=== PATIENT | male | born 1940 | race Caucasian/White ===

== ENCOUNTER 2018-04-03 05:32 | Observation (INO) | payer OTHER ==
--- NOTE | 2018-04-02 16:43 | GHP ---
DATE OF ADMISSION: 04/03/2018 ADMISSION DIAGNOSES: Urinary retention, benign prostatic hypertrophy, and hematuria. This 77-year-old gentleman, who has had lower urinary tract symptoms with urinary obstruction, and he has had a bulbar urethral stricture as well as regrowth of prostatic adenoma. His bladder neck is o pen, and he has had gross hematuria that seems to be related to his regrowth of prostate. He did hav e a photovaporization of prostate in 2012, and did well, but he has continued to have the gross hemat uria, and he is admitted for a TURP. PAST MEDICAL HISTORY: Hematuria, BPH with obstruction, diabetes, erectile dysfunction, hypercholeste rolemia. PAST SURGERIES: GreenLight photovaporization of the prostate, appendectomy, skin cancer. MEDICATIONS: Aspirin, hydrochlorothiazide, lisinopril, metformin, simvastatin. ALLERGIES: None. FAMILY HISTORY: Heart disease, colon cancer, diabetes, hypertension. SOCIAL HISTORY: Moderate alcohol consumption. Former smoker. REVIEW OF SYSTEMS: Negative for cardiac, respiratory, GI, and endocrine. PHYSICAL EXAMINATION: VITAL SIGNS: Stable. CHEST: Clear. HEART: Regular rate and rhythm. ABDOM EN: Normal, no organomegaly, rebound, or guarding. LOWER EXTREMITIES: Normal. At the present time, he is admitted for a transurethral resection of the prostate. It should be said in 2012, he did have urodynamics that showed BPH with obstruction. He is admitted for the above pro cedure. /[id number]/MODL
[2018-04-03] MEDS ORDERED: ceFAZolin 2 GM/DEXTROSE 100 ML IV ONE (05:37)
[2018-04-03] MEDS ORDERED: LIDOCAINE 1% 2 ML INJ ID PRN (05:38)
[2018-04-03] MEDS ORDERED: LR 1,000 ML IV ONE (05:38)
--- NOTE | 2018-04-03 06:50 | PDANEPAE ---
ANE History of Present Illness BPH here for TURP ANE Past Medical History - Cardiovascular History Hx Hypertension: Yes Hx Arrhythmias: No Hx Chest Pain: No Hx Coronary Artery / Peripheral Vascular Disease: No Hx CHF / Valvular Disease: No Hx Palpitations: No - Pulmonary History Hx COPD: No Hx Asthma/Reactive Airway Disease: No Hx Recent Upper Respiratory Infection: No Hx Oxygen in Use at Home: No Hx Sleep Apnea: No Sleep Apnea Screening Result - Last Documented: Positive - Neurologic History Hx Cerebrovascular Accident: No Hx Seizures: No Hx Dementia: No - Endocrine History Hx Diabetes: Yes Endocrine History Comment: NIDDM - Renal History Hx Renal Disorders: Yes Renal History Comment: BPH - Liver History Hx Hepatic Disorders: No - Neurological & Psychiatric Hx Hx Neurological and Psychiatric Disorders: No - Cancer History Hx Cancer: Yes Cancer History Comment: SKIN - Congenital Disorder History Hx Congenital Disorders: No - GI History Hx Gastrointestinal Disorders: Yes Gastrointestinal History Comment: HEARTBURN WILL USE TUMS - Other Health History Other Health History: ECZEMA LEGS /LT CHEST AREA USES STEROIDAL CREME NEEDED. UPPER DENTURES. LOWER PARTIAL - Chronic Pain History Chronic Pain: No - Surgical History Prior Surgeries: GREEN LIGHT PROSTATE 2013. APPY ANE Review of Systems Review of Systems: - Exercise capacity METS (RN): 4 METS ANE Patient History - Allergies Allergies/Adverse Reactions: No Known Allergies Allergy (Verified 03/13/18 11:02) - Home Medications Home Medications: Aspirin [Aspirin 81mg (*)] 81 mg PO HS 03/13/18 [Last Taken 03/30/18] Calcium Carbonate [Oyster Shell Calcium 500 mg (*)] 500 mg PO BID 03/13/18 [ Last Taken 04/02/18 20:30] Lisinopril [Zestril 20 mg (*)] 20 mg PO HS 03/13/18 [Last Taken 04/02/18 20:30] Simvastatin [Zocor] 40 mg PO HS 03/13/18 [Last Taken 04/02/18 20:30] Triamcinolone 0.1% [Triamcinolone 0.1% Cream (*)] 1 keshia TP DAILY PRN 03/13/18 [ Last Taken 03/20/18] metFORMIN HCL [Glucophage 500 mg (*)] 500 mg PO BID 03/13/18 [Last Taken 20:30] - NPO status NPO Status: no food or drink >8 hours NPO Since - Liquids (Date): 04/02/18 NPO Since - Liquids (Time): 20:15 NPO Since - Solids (Date): 04/02/18 NPO Since - Solids (Time): 17:30 - Anes Hx Anes Hx: no prior problems - Smoking Hx Smoking Status: Former smoker - Alcohol Use Alcohol Use: None ANE Labs/Vital Signs - Vital Signs Blood Pressure: 142/91 Heart Rate: 78 Respiratory Rate: 12 O2 Sat (%): 95 Height: 185.42 cm Weight: 91.626 kg ANE Physical Exam - Airway Neck exam: FROM Mallampati Score: Class 2 Mouth exam: poor dentition, dentures - Pulmonary Pulmonary: no respiratory distress, clear to auscultation - Cardiovascular Cardiovascular: regular rate and rhythym, no murmur, rub, or gallop - ASA Status ASA Status: III ANE Anesthesia Plan Anesthesia Plan: GA w LMA
[2018-04-03] MEDS ORDERED: LIDOCAINE 2% JELLY 20 ML (UROJECT) ONE (06:54)
[2018-04-03] MEDS ORDERED: fentaNYL 100 MCG/2 ML INJ ONE (06:57)
[2018-04-03] MEDS ORDERED: PROPOFOL 200 MG/20 ML VIAL ONE (06:57)
[2018-04-03] MEDS ORDERED: LIDOCAINE 2% 100 MG/5 ML SYR ONE (06:58)
--- NOTE | 2018-04-03 07:24 | PDHPUP ---
History & Physical Update H&P update statement: This history and physical update is based on an assessment of the patient which was completed after admission or registration (within 24 hours), but prior to the surgery/procedure. H&P update: H&P reviewed & patient examined, no change in patient's condition since H&P completed
[2018-04-03] MEDS ORDERED: ONDANSETRON 4 MG/2 ML VIAL ONE (07:53)
[2018-04-03] MEDS ORDERED: DEXAMETHASONE 4 MG/ML VIAL ONE (07:53)
[2018-04-03] MEDS ORDERED: OPIUM/BELLADONNA ALKALO SUPP PR PRN (08:28)
[2018-04-03] MEDS ORDERED: HYDROCODONE/APAP 5/325 TAB PO PRN (08:28)
[2018-04-03] MEDS ORDERED: NALOXONE HCL 0.4 MG/ML INJ IVP PRN (08:29)
[2018-04-03] MEDS ORDERED: fentaNYL 100 MCG/2 ML INJ IVP PRN (08:29)
[2018-04-03] MEDS ORDERED: oxyCODONE IR 5 MG TAB PO PRN (08:29)
[2018-04-03] MEDS ORDERED: ACETAMINOPHEN 500 MG TAB PO PRN (08:29)
[2018-04-03] MEDS ORDERED: ONDANSETRON 4 MG/2 ML VIAL IVP PRN ×2 (08:29→08:30)
[2018-04-03] MEDS ORDERED: ONDANSETRON DISINTEGRATING 4 MG TAB PO PRN (08:30)
[2018-04-03] MEDS ORDERED: ACETAMINOPHEN 325 MG TAB PO PRN (08:30)
[2018-04-03] MEDS ORDERED: D5W LR 1,000 ML IV SCH (08:30)
[2018-04-03] MEDS ORDERED: ZOLPIDEM TARTRATE 5 MG TAB PO PRN (08:30)
--- NOTE | 2018-04-03 08:30 | POSTANESTH ---
Post Anesthetic Evaluation Cardiovascular Status: Normal, Stable, Similar to Pre-Op Cond Respiratory Status: Normal, Stable, Similar to Pre-op Cond. Level of Consciousness/Mental Status: Can Participate in Eval, Alert and Oriented Pain Control: Adequate, Prn Tx Ordered Nausea/Vomiting Control: Adequate, Prn Tx Ordered Complications Possibly Related to Anesthesia: None Noted
--- NOTE | 2018-04-03 08:33 | POSTOPPROG ---
Post Op Note Date of Operation: 04/03/18 (dictated) Surgeon: Percy Reese Anesthesiologist: Minerva Anesthesia: LMA Pre-op Diagnosis: hemorrhagic prostatitis / bph Procedure: turp Inf/Abcess present in the surg proc area at time of surgery?: No EBL: 50-100 Drains: Other (riley) Specimen(s): sent
--- NOTE | 2018-04-03 08:46 | GOP ---
DATE OF OPERATION: SURGEON: Percy Reese MD ANESTHESIA: General. ANESTHESIOLOGIST: Dr. Palma. PREOPERATIVE DIAGNOSIS: Hemorrhagic BPH. POSTOPERATIVE DIAGNOSIS: Hemorrhagic BPH. PROCEDURE PERFORMED: Transurethral resection of the prostate. FINDINGS: SPECIMENS: Prostate chips were sent. ESTIMATED BLOOD LOSS: Less than 200. He will be admitted for postoperative care and specimen sent t o Pathology. DESCRIPTION OF PROCEDURE: After undergoing general anesthesia, being prepped and draped in normal st erile fashion and having an appropriate time-out he had a bulbar urethral stricture that was dilated to 28-Iraqi, and I was able to pass the resectoscope into the bladder. Bladder had a significant di verticulum. No tumors identified. Ureteral orifice normal position. Even on the scope h is prostate fossa adenomatous regrowth was bleeding; so at that point, with the bipolar instrument I resected the right lateral lobe, right portion of the posterior lobe, left lateral lobe, left portion of the posterior lobe resected in a similar fashion. Bladder was Ellik'd free of all chips and clot s. Visualization revealed a preservation of the verumontanum, external sphincter approximated the mi dline symmetrically. A 22 three-way catheter was passed over a Mandarin guide, and 70 cc balloon inf lated, traction placed. I did irrigate his bladder free of all chips and clots, and no complications . /[id number]/MODL
--- NOTE | 2018-04-03 15:17 | ASMTCMCOM ---
CM Note CM Note Notes: Pt admitted for TURP and UTI. Pt lives independently with , and daughter has come into town to be supportive post discharge. Spoke with pt and RN in the room. Pt likely to discharge independently. No therapies ordered. CM to follow. D/C Plan: Independent Date Signed: 04/03/2018 03:16 PM Electronically Signed By:Cristina Mclean
--- NOTE | 2018-04-03 16:54 | SOAPPROG ---
SOAP Progress Note Assessment/Plan: Assessment: Congestion of prostate with hemorrhage Acute POST op check, doing well Plan: consider removal of riley in am 04/03/18 16:52 Subjective: doing well Objective: Vital Signs Temp Pulse Resp BP Pulse Ox 36.6 C 72 16 127/67 H 93 04/03/18 15:32 04/03/18 15:32 04/03/18 15:32 04/03/18 15:32 04/03/18 15:32 04/02/18 04/03/18 04/04/18 05:59 05:59 05:59 Intake Total 400 Balance 400 Physical Exam - Physical Exam General Appearance: alert Abdomen: soft ICD10 Worksheet Patient Problems: Problems Problem Status Onset Congestion of prostate with hemorrhage Acute - ICD10 Problem Qualifiers (1) Congestion of prostate with hemorrhage
[2018-04-04 07:11] VITALS: BP 140/72
--- NOTE | 2018-04-04 08:05 | SOAPPROG ---
SOAP Progress Note Assessment/Plan: Assessment: Congestion of prostate with hemorrhage Acute POST op day # 1, doing well Plan: consider removal of riley and DC home 04/04/18 08:04 Objective: Vital Signs Temp Pulse Resp BP Pulse Ox 36.4 C 60 18 140/72 H 97 04/04/18 07:09 04/04/18 07:09 04/04/18 07:09 04/04/18 07:09 04/04/18 07:09 04/03/18 04/04/18 04/05/18 05:59 05:59 05:59 Intake Total 1400 Output Total 2105 Balance -705 ICD10 Worksheet Patient Problems: Problems Problem Status Onset Congestion of prostate with hemorrhage Acute - ICD10 Problem Qualifiers (1) Congestion of prostate with hemorrhage
--- NOTE | 2018-04-04 12:14 | GDS ---
PREOPERATIVE DIAGNOSIS: Hemorrhagic benign prostatic hyperplasia. POSTOPERATIVE DIAGNOSIS: Hemorrhagic benign prostatic hyperplasia. HISTORY OF PRESENT ILLNESS: A pleasant gentleman, well known to our office. He was evaluated for bl eeding. It was identified that this was coming from his prostate, and he elected, after a full discu ssion of options, to undergo a transurethral resection of the prostate. He underwent this without di fficulty. He is being discharged home in good condition. He is to follow up with our office as amira demarco. /[id number]/MODL
== END 2018-04-04 13:00 | disposition home or self-care (01) ==
LOC: F1N 05:32
PROVIDERS: ADMIT Specialist; ATTEND Specialist
PROC: 0VT08ZZ Resection of Prostate, Via Natural or Artificial Opening Endoscopic (ICD-10-PCS; principal; 2018-04-03 07:16)
DX: N40.1 Benign prostatic hyperplasia with lower urinary tract symptoms (principal); R31.0 Gross hematuria; R33.9 Retention of urine, unspecified; N32.3 Diverticulum of bladder; N52.9 Male erectile dysfunction, unspecified; I10 Essential (primary) hypertension; E11.9 Type 2 diabetes mellitus without complications; E78.5 Hyperlipidemia, unspecified; Z87.891 Personal history of nicotine dependence; Z87.440 Personal history of urinary (tract) infections
CPT/HCPCS: 52601; J0690; J1100; J2001; J2405; J2704; J3010